=== PATIENT | male | born 1985 | race Caucasian/White ===

== ENCOUNTER 2016-12-25 20:17 | Emergency (ER) | payer MEDICAID ==
[2016-12-25 21:18] VITALS: BP 148/90
--- NOTE | 2016-12-25 22:08 | EDM.PDOC ---
ED HPI GENERAL MEDICAL PROBLEM - General Chief Complaint: Headache Stated Complaint: HEADACHES Time Seen by Provider: 12/25/16 21:51 Source of Information: Reports: Patient History Limitations: Reports: No Limitations, Altered Mental Status - History of Present Illness INITIAL COMMENTS - FREE TEXT/NARRATIVE: 31 years old male patient presented with chief complaint of three-day history of right-sided throbbing headache. Waxing and waning. Denies any visual changes. Denies any fever. No neck pain or stiffness. Denies any nausea or vomiting. Denies any body aches. Denies any chest pain or shortness breath. He stated for the last 4 or 5 hours is feeling numb in his left hand and he dropped a cup, time. He feels numbness is almost gone at this point. Denies any weakness. Headache Pain Score (Numeric/FACES): 4 - Related Data Allergies Allergy/AdvReac Type Severity Reaction Status Date / Time No Known Allergies Allergy Verified 12/25/16 21:27 Home Meds: Home Meds Allopurinol [Allopurinol] 1 tab PO ASDIRECTED 03/15/15 [History] Past Medical History Gastrointestinal History: Reports: GERD Musculoskeletal History: Reports: Fracture Other Musculoskeletal History: back pain hx. gout Social & Family History - Tobacco Use Smoking Status *Q: Heavy Tobacco Smoker Years of Tobacco use: 20 Packs/Tins Daily: 1 Used Tobacco, but Quit: Yes Month Tobacco Last Used: may, Second Hand Smoke Exposure: No - Alcohol Use Days Per Week of Alcohol Use: 0 Number of Drinks Per Day: 3 Total Drinks Per Week: 0 - Recreational Drug Use Recreational Drug Use: No - Living Situation & Occupation Occupation: Employed ED ROS GENERAL - Review of Systems Review Of Systems: ROS reveals no pertinent complaints other than HPI. - Physical Exam Exam: See Below Exam Limited By: No Limitations General Appearance: Alert, WD/WN, No Apparent Distress Head Exam: Atraumatic, Normocephalic Neck: Normal Inspection, Supple, Non-Tender, Full Range of Motion Respiratory/Chest: No Respiratory Distress, Lungs Clear, Normal Breath Sounds, No Accessory Muscle Use, Chest Non-Tender Cardiovascular: Normal Peripheral Pulses, Regular Rate, Rhythm, No Edema, No Gallop, No JVD, No Murmur, No Rub GI/Abdominal: Normal Bowel Sounds, Soft, Non-Tender, No Organomegaly, No Distention, No Abnormal Bruit, No Mass Neuro Exam (Abbreviated): Alert, Oriented, CN II-XII Intact, Normal Cognition, Normal Gait, Normal Reflexes, No Motor/Sensory Deficits, Other (Paresthesia of the left hand) Course - Vital Signs Last Recorded V/S: Last Vital Signs Temp 36.3 C 12/25/16 21:24 Pulse 60 12/25/16 21:24 Resp 16 12/25/16 21:24 BP 148/90 H 12/25/16 21:24 Pulse Ox 99 12/25/16 21:24 - Orders/Labs/Meds Orders: Active Orders 24 hr Category Date Time Status Head wo Cont [CT] Urgent Exams 12/25/16 22:00 Taken Sodium Chloride 0.9% [Normal Saline] 1,000 ml Med 12/25/16 22:15 Active IV .BOLUS Medication Orders Sodium Chloride (Normal Saline) 1,000 mls @ 999 mls/hr IV .BOLUS CORRY Last Admin: 12/25/16 22:16 Dose: 999 mls/hr Labs: Laboratory Tests 12/25/16 12/25/16 12/25/16 Range/Units 22:16 22:16 22:16 WBC 11.6 H (4.5-11.0) K/uL RBC 5.57 (4.30-5.90) M/uL Hgb 16.8 H (12.0-15.0) g/dL Hct 47.6 (40.0-54.0) % MCV 86 (80-98) fL MCH 30 (27-31) pg MCHC 35 (32-36) % Plt Count 272 (150-400) K/uL Neut % (Auto) 66 (36-66) % Lymph % (Auto) 25 (24-44) % Emmons % (Auto) 7 H (2-6) % Eos % (Auto) 2 (2-4) % Baso % (Auto) 1 (0-1) % ESR (0-20) mm/hr PT 10.6 (9.5-12.0) sec INR 0.99 (0.80-1.20) APTT 26.4 L (27.0-36.0) sec Sodium 139 L (140-148) mmol/L Potassium 3.6 (3.6-5.2) mmol/L Chloride 104 (100-108) mmol/L Carbon Dioxide 28 (21-32) mmol/L Anion Gap 10.6 (5.0-14.0) mmol/L BUN 12 (7-18) mg/dL Creatinine 1.0 (0.8-1.3) mg/dL Est Cr Clr Drug Dosing 99.15 mL/min Estimated GFR (MDRD) > 60 (>60) Glucose 73 L (74-106) mg/dL Calcium 8.4 L (8.5-10.1) mg/dL C-Reactive Protein 0.52 H (0.0-0.3) mg/dL 12/25/16 Range/Units 22:16 WBC (4.5-11.0) K/uL RBC (4.30-5.90) M/uL Hgb (12.0-15.0) g/dL Hct (40.0-54.0) % MCV (80-98) fL MCH (27-31) pg MCHC (32-36) % Plt Count (150-400) K/uL Neut % (Auto) (36-66) % Lymph % (Auto) (24-44) % Emmons % (Auto) (2-6) % Eos % (Auto) (2-4) % Baso % (Auto) (0-1) % ESR 3 (0-20) mm/hr PT (9.5-12.0) sec INR (0.80-1.20) APTT (27.0-36.0) sec Sodium (140-148) mmol/L Potassium (3.6-5.2) mmol/L Chloride (100-108) mmol/L Carbon Dioxide (21-32) mmol/L Anion Gap (5.0-14.0) mmol/L BUN (7-18) mg/dL Creatinine (0.8-1.3) mg/dL Est Cr Clr Drug Dosing mL/min Estimated GFR (MDRD) (>60) Glucose (74-106) mg/dL Calcium (8.5-10.1) mg/dL C-Reactive Protein (0.0-0.3) mg/dL Meds: Medications Generic Name Dose Route Start Last Admin Trade Name Freq PRN Reason Stop Dose Admin Sodium Chloride 1,000 mls @ 999 mls/hr 12/25/16 22:15 12/25/16 22:16 Normal Saline IV 999 mls/hr .BOLUS CORRY Administration - Re-Assessments/Exams Free Text/Narrative Re-Assessment/Exam: 12/25/16 22:07 Patient was seen and examined shortly after arrival. Started on IV fluids. CT head ordered. Lab and imaging. CT head shows no acute abnormalities. Lab shows mildly elevated white count and CRP. Patient refused any pain medication. He stated that his symptom almost completely resolved. Numbness completely resolved. At this point unclear etiology of his headache. Differential including but not limited to migraine headache, tension headache, complex migraine headache, TIA, stroke, subarachnoid hemorrhage viral illness, meningitis, encephalitis, etc. Symptoms almost resolved. Advised to come back if symptom worsen. Follow-up with his primary doctor tomorrow for reevaluation and possibly MRI of his brain. Patient agrees with the plan. Stable for discharge 12/25/16 23:40 12/25/16 23:44 Departure - Departure Time of Disposition: 23:44 Disposition: Home, Self-Care 01 Condition: Good Clinical Impression: Migraine - Discharge Information Referrals: PCP,None [Primary Care Provider] - Forms: ED Department Discharge Additional Instructions: Advised to come back if symptom worsen. Follow-up with his primary doctor tomorrow for reevaluation and possibly MRI of his brain. - My Orders Last 24 Hours: My Active Orders 12/25/16 22:00 Head wo Cont [CT] Urgent 12/25/16 22:15 Sodium Chloride 0.9% [Normal Saline] 1,000 ml IV .BOLUS - Assessment/Plan Last 24 Hours: My Active Orders 12/25/16 22:00 Head wo Cont [CT] Urgent 12/25/16 22:15 Sodium Chloride 0.9% [Normal Saline] 1,000 ml IV .BOLUS Plan: Advised to come back if symptom worsen. Follow-up with his primary doctor tomorrow for reevaluation and possibly MRI of his brain.
[2016-12-25] MEDS ORDERED: Sodium Chloride 0.9% 1,000 ML IV SCH (22:15)
== END 2016-12-26 00:06 | disposition home or self-care (01) ==
LOC: JP.ED 20:17
DX: G43.909 Migraine, unspecified, not intractable, without status migrainosus (principal); F17.210 Nicotine dependence, cigarettes, uncomplicated; K21.9 Gastro-esophageal reflux disease without esophagitis
CPT/HCPCS: 36415; 70450; 80048; 85025; 85610; 85651; 85730; 86140; 96360; 99284; J7040

== ENCOUNTER 2018-07-05 10:43 | Emergency (ER) | payer MEDICAID ==
[2018-07-05 11:00] VITALS: BP 169/117
[2018-07-05] MEDS ORDERED: Ketorolac 60 MG/2 ML SDV IM ONE (11:37)
--- NOTE | 2018-07-05 11:43 | EDM.PDOC ---
ED HPI GENERAL MEDICAL PROBLEM - General Chief Complaint: ENT Problem Stated Complaint: TOOTH ACHE Time Seen by Provider: 07/05/18 11:35 Source of Information: Reports: Patient, RN Notes Reviewed History Limitations: Reports: No Limitations - History of Present Illness INITIAL COMMENTS - FREE TEXT/NARRATIVE: 32-year-old gentleman presents emergency department day complaint of dental pain he states he recently had some dental work done on last week in preparation for her crown however the pain has persistently gotten worse he does have a dental appointment tomorrow he is needing pain medication to make it through until he can visit with his dentist he is not had any fevers - Related Data Allergies Allergy/AdvReac Type Severity Reaction Status Date / Time No Known Allergies Allergy Verified 07/05/18 11:05 Home Meds: Home Meds NK [No Known Home Meds] 12/25/17 [History] Past Medical History Gastrointestinal History: Reports: GERD Musculoskeletal History: Reports: Fracture Other Musculoskeletal History: back pain hx. gout - Past Surgical History Musculoskeletal Surgical History: Reports: Other (See Below) Other Musculoskeletal Surgeries/Procedures:: lumbar tap Social & Family History - Tobacco Use Smoking Status *Q: Current Every Day Smoker Years of Tobacco use: 10 Packs/Tins Daily: 1 - Caffeine Use Caffeine Use: Reports: Soda - Recreational Drug Use Recreational Drug Use: No - Living Situation & Occupation Occupation: Employed ED ROS ENT - Review of Systems Review Of Systems: See Below Constitutional: Denies: Fever HEENT: Reports: Dental Pain ED EXAM, ENT - Physical Exam Exam: See Below Text/Narrative:: Mouth mucosa is moist and pink there is no erythema or exudate noted in soft palate tongue is midline uvula is midline dentition #14 has recent dental work on it it is tender to the touch Exam Limited By: No Limitations General Appearance: Alert, WD/WN, No Apparent Distress Course - Vital Signs Last Recorded V/S: Last Vital Signs Temp 95.4 F 07/05/18 11:05 Pulse 100 07/05/18 11:05 Resp 22 H 07/05/18 11:05 BP 169/117 H 07/05/18 11:05 Pulse Ox 93 L 07/05/18 11:05 - Orders/Labs/Meds Meds: Medications Discontinued Medications Generic Name Dose Route Start Last Admin Trade Name Fresakshi PRN Reason Stop Dose Admin Ketorolac Tromethamine 60 mg 07/05/18 11:37 Toradol IM 07/05/18 11:38 ONETIME ONE Departure - Departure Time of Disposition: 11:42 Disposition: Home, Self-Care 01 Condition: Fair Clinical Impression: Pain, dental - Discharge Information Referrals: PCP,None [Primary Care Provider] - Additional Instructions: Use hydrocodone 1 tablet every 4-6 hours as needed for pain control please keep your follow-up appointment with dentistry tomorrow - Assessment/Plan Plan: Assessment Acuity = acute Site and laterality = dental pain tooth #14 Etiology = secondary to recent dental work Manifestations = none Location of injury = Home Lab values = none Plan Hydrocodone 5/325 one tablet by mouth 3 times a day when necessary total #4 provided , he has a follow-up appointment with dentistry tomorrow This note was dictated using [employer] voice recognition software please call with any questions on syntax or grammar.
== END 2018-07-05 11:57 | disposition home or self-care (01) ==
LOC: JP.ED 10:43
DX: K08.89 Other specified disorders of teeth and supporting structures (principal); F17.210 Nicotine dependence, cigarettes, uncomplicated
CPT/HCPCS: 96372; 99282; J1885

== ENCOUNTER 2018-07-06 18:53 | Emergency (ER) | payer MEDICAID ==
[2018-07-06 19:07] VITALS: BP 161/106
--- NOTE | 2018-07-06 19:20 | EDM.PDOC ---
ED HPI GENERAL MEDICAL PROBLEM - General Chief Complaint: ENT Problem Stated Complaint: TOOTH PULLED, STILL BLEEDING Time Seen by Provider: 07/06/18 19:05 Source of Information: Reports: Patient, Old Records, RN History Limitations: Reports: No Limitations - History of Present Illness INITIAL COMMENTS - FREE TEXT/NARRATIVE: 32 yo male had a tooth extracted this morning. Has been bleeding since. Has a large clot in the location of his dental extraction. Is not on any anticoagulants. Onset: Today Onset Date: 07/06/18 Onset Time: 09:00 Duration: Constant Location: Reports: Face (L maxillary molar) Quality: Reports: Dull Severity: Mild Improves with: Reports: None Worsens with: Reports: None Context: Reports: Other (see HPI) Associated Symptoms: Reports: No Other Symptoms Treatments PORTER SAMPLE CASE: Reports: Other (see below) (gauze) - Related Data Allergies Allergy/AdvReac Type Severity Reaction Status Date / Time No Known Allergies Allergy Verified 07/05/18 11:05 Home Meds: Home Meds NK [No Known Home Meds] 12/25/17 [History] Past Medical History - Past Health History Medical/Surgical History: Denies Medical/Surgical History Gastrointestinal History: Reports: GERD Musculoskeletal History: Reports: Fracture Other Musculoskeletal History: back pain hx. gout - Past Surgical History Musculoskeletal Surgical History: Reports: Other (See Below) Other Musculoskeletal Surgeries/Procedures:: lumbar tap Social & Family History - Tobacco Use Smoking Status *Q: Current Every Day Smoker Years of Tobacco use: 20 Packs/Tins Daily: 1 - Caffeine Use Caffeine Use: Reports: Soda - Recreational Drug Use Recreational Drug Use: No - Living Situation & Occupation Occupation: Employed ED ROS ENT - Review of Systems Review Of Systems: See Below Constitutional: Reports: No Symptoms HEENT: Reports: Other (oral bleeding) Respiratory: Reports: No Symptoms Cardiovascular: Reports: No Symptoms Endocrine: Reports: No Symptoms GI/Abdominal: Reports: No Symptoms Skin: Reports: No Symptoms Neurological: Reports: No Symptoms Psychiatric: Reports: No Symptoms ED EXAM, ENT - Physical Exam Exam: See Below Exam Limited By: No Limitations General Appearance: Alert, WD/WN, No Apparent Distress Eye Exam: Bilateral Eye: Normal Inspection Ears: Normal External Exam, Normal Canal, Hearing Grossly Normal Nose: Normal Inspection, No Blood Mouth/Throat: Normal Inspection, Normal Lips, Normal Oropharynx, Other (large clot in L posterior maxilla, slow bleeding noted.) Head: Atraumatic, Normocephalic Neck: Normal Inspection, Supple, Non-Tender Respiratory/Chest: No Respiratory Distress, No Accessory Muscle Use Cardiovascular: Regular Rate, Rhythm Neurological: Alert, Oriented, CN II-XII Intact, Normal Cognition, No Motor/ Sensory Deficits Psychiatric: Normal Affect, Normal Mood Skin: Warm, Dry, Intact, Normal Color Lymphatic: No Adenopathy Course - Vital Signs Text/Narrative:: Clot removed. Had patient bite on a wetted black tea bag. Bleeding controlled with this measure. Last Recorded V/S: Last Vital Signs Temp 35.7 C 07/06/18 19:08 Pulse 66 07/06/18 19:08 Resp 14 07/06/18 19:08 BP 161/106 H 07/06/18 19:08 Pulse Ox 99 07/06/18 19:08 Departure - Departure Time of Disposition: 19:41 Disposition: Home, Self-Care 01 Condition: Good Clinical Impression: Surgical wound hemorrhage after dental procedure - Discharge Information *PRESCRIPTION DRUG MONITORING PROGRAM REVIEWED*: No *COPY OF PRESCRIPTION DRUG MONITORING REPORT IN PATIENT FARZANA: No Referrals: PCP,None [Primary Care Provider] - Forms: ED Department Discharge Additional Instructions: Bite on a black tea bag as needed to control bleeding. Use acetaminophen for pain control as this will cause less bleeding. Recheck as needed.
== END 2018-07-06 19:50 | disposition home or self-care (01) ==
LOC: JP.ED 18:53
DX: K91.840 Postprocedural hemorrhage of a digestive system organ or structure following a digestive system procedure (principal); F17.210 Nicotine dependence, cigarettes, uncomplicated
CPT/HCPCS: 99282

== ENCOUNTER 2019-04-25 19:37 | Emergency (ER) | payer MEDICAID ==
[2019-04-25 19:52] VITALS: BP 136/82; PULSE 66
--- NOTE | 2019-04-25 21:29 | EDM.PDOC ---
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 He reports that he had a mild bifrontal headache with radiation around to the posterior scalp all day. 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 Severity is actually now decreased to 4/10. He had no associated vision changes or pain with eye movement. No weakness or clumsiness of extremities. No speech difficulty. No neck pain. No fevers. Right Headache Pain Score (Numeric/FACES): 3 - Related Data Allergies Allergy/AdvReac Type Severity Reaction Status Date / Time No Known Allergies Allergy Verified 04/25/19 19:53 Home Meds: Home Meds Aspirin 325 mg PO DAILY 04/25/19 [History] Varenicline Tartrate [Chantix] 1 dose PO DAILY 04/25/19 [History] atorvaSTATin [Lipitor] 20 mg PO DAILY 04/25/19 [History] Past Medical History - Past Health History Medical/Surgical History: Denies Medical/Surgical History Cardiovascular History: Reports: High Cholesterol Gastrointestinal History: Reports: GERD Musculoskeletal History: Reports: Fracture Other Musculoskeletal History: back pain hx. gout Neurological History: Reports: CVA Hematologic History: Reports: Anticoagulation Therapy - Past Surgical History Musculoskeletal Surgical History: Reports: Other (See Below) Other Musculoskeletal Surgeries/Procedures:: lumbar tap Social & Family History - Family History Family Medical History: Noncontributory - Tobacco Use Smoking Status *Q: Former Smoker Years of Tobacco use: 24 Used Tobacco, but Quit: Yes Month/Year Tobacco Last Used: March 2019 - Caffeine Use Caffeine Use: Reports: Coffee, Energy Drinks, Soda, Tea - Recreational Drug Use Recreational Drug Use: No - Living Situation & Occupation Occupation: Employed ED ROS GENERAL - Review of Systems Review Of Systems: See Below Constitutional: Reports: No Symptoms HEENT: Reports: No Symptoms Respiratory: Reports: No Symptoms Cardiovascular: Reports: No Symptoms Endocrine: Reports: No Symptoms GI/Abdominal: Reports: No Symptoms : Reports: No Symptoms Musculoskeletal: Reports: No Symptoms Skin: Reports: No Symptoms Neurological: Reports: Headache Psychiatric: Reports: No Symptoms Hematologic/Lymphatic: Reports: No Symptoms Immunologic: Reports: No Symptoms - Physical Exam Exam: See Below Exam Limited By: No Limitations General Appearance: Alert, No Apparent Distress Ears: Normal External Exam Nose: Normal Inspection Throat/Mouth: Normal Inspection Head Exam: Atraumatic, Normocephalic Neck: Normal Inspection Respiratory/Chest: No Respiratory Distress, Lungs Clear Cardiovascular: Regular Rate, Rhythm GI/Abdominal: Soft, Non-Tender Neuro Exam (Abbreviated): Alert, Oriented, CN II-XII Intact, Normal Gait, No Motor/Sensory Deficits (Speech is fluid. EOMI. Extremity strength 5/5 and symmentric. Stable gait. Normal finger nose testing.) Back Exam: Normal Inspection Extremities: Normal Inspection Psychiatric: Normal Affect, Normal Mood Skin Exam: Warm, Dry Course - Vital Signs Last Recorded V/S: Last Vital Signs Temp 36.2 C 04/25/19 19:55 Pulse 66 04/25/19 19:55 Resp 16 04/25/19 19:55 BP 136/82 04/25/19 19:55 Pulse Ox 97 04/25/19 19:55 - Re-Assessments/Exams Free Text/Narrative Re-Assessment/Exam: 33 yo who presents with concerns of headache. Carries a history of possible MS, as well as recently diagnosed abnormality on CTA of the head and neck (just able to see pended outpatient neuro IR consult note). What he is describing today seems most consistent with tension type headache. His symptoms are actually improving. He is completely neuro intact. No symptoms hand clumsiness which accompanied his first MS flair in 2017, or any other findings to suggest flair of MS at this time. I think he is safe to treat symptomatically. If his symptoms worsen, or if he develops focal neuro findings or symptoms suggestive of optic neuritis, he will return to ER. 04/25/19 21:36 Departure - Departure Time of Disposition: 21:25 Disposition: Home, Self-Care 01 Clinical Impression: Headache Qualifiers: Headache type: tension-type Headache chronicity pattern: unspecified pattern Intractability: not intractable Qualified Code(s): G44.209 - Tension-type headache, unspecified, not intractable - Discharge Information Instructions: General Headache Without Cause, [id number] Referrals: PCP,None [Primary Care Provider] - Forms: ED Department Discharge Additional Instructions: Your headache is not likely to be due to a stroke and possible MS You are okay to treat it with tylenol and ibuprofen If you have a significant change in symptoms, particularly if you noticed pain with eye movements, double vision, weakness or clumsiness please return to the ER. Sepsis Event Note - Evaluation Sepsis Screening Result: No Definite Risk - Focused Exam Vital Signs: Vital Signs Temp Pulse Resp BP Pulse Ox 04/25/19 19:55 36.2 C 66 16 136/82 97 04/25/19 19:50 36.2 C 66 16 136/82 97 Date Exam was Performed: 04/25/19 Time Exam was Performed: 21:31
== END 2019-04-25 21:34 | disposition home or self-care (01) ==
LOC: JP.ED 19:37
DX: G44.209 Tension-type headache, unspecified, not intractable (principal); E78.00 Pure hypercholesterolemia, unspecified; Z79.82 Long term (current) use of aspirin; Z79.899 Other long term (current) drug therapy; Z86.73 Personal history of transient ischemic attack (TIA), and cerebral infarction without residual deficits; Z87.891 Personal history of nicotine dependence
CPT/HCPCS: 99283

== ENCOUNTER 2019-09-25 15:42 | Emergency (ER) | payer MEDICAID ==
[2019-09-25 15:53] VITALS: BP 174/106; PULSE 78
[2019-09-25] MEDS ORDERED: Ketorolac 60 MG/2 ML SDV IM ONE (16:05)
[2019-09-25] MEDS ORDERED: Colchicine 0.6 MG Tab PO ONE (16:05)
--- NOTE | 2019-09-25 16:10 | EDM.PDOC ---
ED HPI GENERAL MEDICAL PROBLEM - General Chief Complaint: Lower Extremity Injury/Pain Stated Complaint: RIGHT FOOT SWOLLEN Time Seen by Provider: 09/25/19 16:00 Source of Information: Reports: Patient, Family, RN Notes Reviewed History Limitations: Reports: No Limitations - History of Present Illness INITIAL COMMENTS - FREE TEXT/NARRATIVE: 33-year-old gentleman presents emergency department today with complaint of pain in his great toe right foot he does have a history of gout he is only been using allopurinol he does not know the triggers of his gout and has not had a flareup for some time. Has been increasing over the last 4 days as well as swelling of the great toe Right Foot Pain Score (Numeric/FACES): 10 - Related Data Allergies Allergy/AdvReac Type Severity Reaction Status Date / Time No Known Allergies Allergy Verified 09/25/19 15:54 Home Meds: Home Meds Aspirin 325 mg PO DAILY 04/25/19 [History] atorvaSTATin [Lipitor] 20 mg PO DAILY 04/25/19 [History] allopurinoL [Zyloprim] 300 mg PO DAILY 09/25/19 [History] Past Medical History Cardiovascular History: Reports: High Cholesterol Gastrointestinal History: Reports: GERD Musculoskeletal History: Reports: Back Pain, Chronic, Fracture, Gout Neurological History: Reports: CVA Hematologic History: Reports: Anticoagulation Therapy - Past Surgical History Cardiovascular Surgical History: Reports: None Neurological Surgical History: Reports: None Musculoskeletal Surgical History: Reports: Other (See Below) Other Musculoskeletal Surgeries/Procedures:: lumbar tap Social & Family History - Family History Family Medical History: Noncontributory - Tobacco Use Smoking Status *Q: Current Every Day Smoker Years of Tobacco use: 20 Packs/Tins Daily: 1 - Caffeine Use Caffeine Use: Reports: Coffee, Energy Drinks, Soda - Recreational Drug Use Recreational Drug Use: No - Living Situation & Occupation Occupation: Employed Review of Systems - Review of Systems Review Of Systems: See Below Constitutional: Reports: No Symptoms Musculoskeletal: Reports: Other (Great toe pain right foot) Skin: Reports: Pallor, Erythema ED EXAM, GENERAL - Physical Exam Exam: See Below Free Text/Narrative:: Examination of the great toe it is tender over the first metatarsal, it is warm to the touch erythema is also appreciated pedal pulses +2 Exam Limited By: No Limitations General Appearance: Alert, WD/WN, No Apparent Distress Course - Vital Signs Last Recorded V/S: Last Vital Signs Temp 95 F L 09/25/19 15:51 Pulse 78 09/25/19 15:51 Resp 16 09/25/19 15:51 BP 174/106 H 09/25/19 15:51 Pulse Ox 97 09/25/19 15:51 - Orders/Labs/Meds Orders: Active Orders 24 hr Category Date Time Status Colchicine [Colcrys] Med 09/25/19 16:05 Once 1.8 mg PO ONETIME ONE Ketorolac [Toradol] Med 09/25/19 16:05 Once 60 mg IM ONETIME ONE Departure - Departure Time of Disposition: 16:09 Disposition: Home, Self-Care 01 Condition: Fair Clinical Impression: Gout Qualifiers: Gout site: toe Gout etiology: other secondary cause Chronicity: chronic Laterality: right Presence of tophus: without tophus Qualified Code(s): 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, right ankle and foot, without tophus (tophi) - Discharge Information Referrals: PCP,None [Primary Care Provider] - Additional Instructions: Take your colchicine in 1 hour after the initial dose, recommend start using ibuprofen this evening 800 mg 3 times a day as needed for pain control follow-up with your primary care in the next 3 to 5 days for evaluation if not better, call or return to the emergency department worsening of symptoms Sepsis Event Note (ED) - Evaluation Sepsis Screening Result: No Definite Risk - Focused Exam Vital Signs: Vital Signs Temp Pulse Resp BP Pulse Ox 09/25/19 15:51 95 F L 78 16 174/106 H 97 - My Orders Last 24 Hours: My Active Orders 09/25/19 16:05 Colchicine [Colcrys] 1.8 mg PO ONETIME ONE Ketorolac [Toradol] 60 mg IM ONETIME ONE - Assessment/Plan Last 24 Hours: My Active Orders 09/25/19 16:05 Colchicine [Colcrys] 1.8 mg PO ONETIME ONE Ketorolac [Toradol] 60 mg IM ONETIME ONE Plan: Assessment Acuity = acute Site and laterality = gout great toe right foot Etiology = unknown Manifestations = pain Location of injury = Home Lab values = none Plan Like to treat empirically colchicine 1.2 mg now followed by 0.6 mg in 1 hour as well as a Toradol injection he is going to use ibuprofen at home follow-up primary care 3 to 5 days if not better This note was dictated using [employer] voice recognition software please call with any questions on syntax or grammar.
== END 2019-09-25 16:40 | disposition home or self-care (01) ==
LOC: JP.ED 15:42
DX: M1A.4710 Other secondary chronic gout, right ankle and foot, without tophus (tophi) (principal); E78.00 Pure hypercholesterolemia, unspecified; F17.210 Nicotine dependence, cigarettes, uncomplicated; Z79.82 Long term (current) use of aspirin; Z79.899 Other long term (current) drug therapy; Z79.01 Long term (current) use of anticoagulants
CPT/HCPCS: 96372; 99283; A9270; J1885

== ENCOUNTER 2020-12-25 20:28 | Emergency (ER) | payer MEDICAID ==
[2020-12-25 21:04] VITALS: BP 140/94; PULSE 85
--- NOTE | 2020-12-25 21:39 | EDM.PDOC ---
ED HPI GENERAL MEDICAL PROBLEM - General Chief Complaint: ENT Problem Stated Complaint: SORE THROAT Time Seen by Provider: 12/25/20 21:20 Source of Information: Reports: Patient History Limitations: Reports: No Limitations - History of Present Illness INITIAL COMMENTS - FREE TEXT/NARRATIVE: 35-year-old male with a sore throat for the past 2 days, is very low but very uncomfortable. He now has a hoarse voice as well. No fevers or chills, no significant cough or runny nose. Onset: Gradual Duration: Day(s): (2 days of symptoms) Location: Reports: Chest (Discomfort is in the upper chest and lower throat just above the sternal notch) Worsens with: Reports: Other (Markedly worse with swallowing) Associated Symptoms: Reports: Other (Hoarse voice). Denies: Cough, Shortness of Breath Throat Pain Score (Numeric/FACES): 5 - Related Data Allergies Allergy/AdvReac Type Severity Reaction Status Date / Time No Known Allergies Allergy Verified 12/25/20 21:05 Home Meds: Home Meds Aspirin 325 mg PO DAILY 04/25/19 [History] atorvaSTATin [Lipitor] 20 mg PO DAILY 04/25/19 [History] allopurinoL [Zyloprim] 300 mg PO DAILY 09/25/19 [History] Past Medical History - Past Health History Medical/Surgical History: Denies Medical/Surgical History Cardiovascular History: Reports: Arrhythmia, Blood Clots/VTE/DVT, High Cholesterol, Other (See Below) Other Cardiovascular History: implanted loop recorder Gastrointestinal History: Reports: GERD Musculoskeletal History: Reports: Back Pain, Chronic, Fracture, Gout Other Musculoskeletal History: back pain hx. gout Neurological History: Reports: CVA Hematologic History: Reports: Anticoagulation Therapy - Infectious Disease History Infectious Disease History: Reports: Chicken Pox, Shingles - Past Surgical History Cardiovascular Surgical History: Reports: None, Other (See Below) Other Cardiovascular Surgeries/Procedures: "has a heart monitor in chest" Neurological Surgical History: Reports: None Musculoskeletal Surgical History: Reports: Other (See Below) Other Musculoskeletal Surgeries/Procedures:: lumbar tap Social & Family History - Family History Family Medical History: No Pertinent Family History - Tobacco Use Tobacco Use Status *Q: Current Every Day Tobacco User Years of Tobacco use: 26 Packs/Tins Daily: 1 - Caffeine Use Caffeine Use: Reports: Coffee, Energy Drinks, Soda - Recreational Drug Use Recreational Drug Use: No - Living Situation & Occupation Occupation: Employed ED ROS ENT - Review of Systems Review Of Systems: See Below Constitutional: Reports: Malaise. Denies: Fever, Chills HEENT: Reports: Throat Pain Respiratory: Denies: Shortness of Breath, Cough Cardiovascular: Denies: Chest Pain, Dyspnea on Exertion GI/Abdominal: Denies: Nausea, Vomiting Skin: Reports: No Symptoms Neurological: Reports: No Symptoms Psychiatric: Reports: No Symptoms ED EXAM, ENT - Physical Exam Exam: See Below Exam Limited By: No Limitations General Appearance: Alert, No Apparent Distress Eye Exam: Bilateral Eye: Normal Inspection Ears: Normal TMs Mouth/Throat: Normal Inspection, Other (Moderate pharyngeal erythema, no exudate or tonsillar swelling) Head: Atraumatic Neck: Other (He is actually somewhat tender to palpation just above the sternal notch over the lower throat, there is no mass or asymmetry). No: Lymphadenopathy (R), Lymphadenopathy (L) Respiratory/Chest: No Respiratory Distress, Lungs Clear Cardiovascular: Regular Rate, Rhythm Neurological: Alert, Oriented Psychiatric: Normal Affect, Normal Mood Skin: Warm, Dry Course - Vital Signs Last Recorded V/S: Last Vital Signs Temp 97.0 F 12/25/20 21:07 Pulse 85 12/25/20 21:07 Resp 14 12/25/20 21:07 BP 140/94 H 12/25/20 21:07 Pulse Ox 96 12/25/20 21:07 - Orders/Labs/Meds Orders: Active Orders 24 hr Category Date Time Status STREP SCRN A RAPID W CULT CONF [RM] Routine Lab 12/25/20 21:35 Results Labs: Laboratory Tests 12/25/20 Range/Units 21:35 SARS CoV-2 RNA Rapid RODNEY Negative Meds: Medications Discontinued Medications Generic Name Dose Route Start Last Admin Trade Name Freq PRN Reason Stop Dose Admin Lidocaine HCl 15 ml 12/25/20 21:38 12/25/20 22:16 Lidocaine 2% Viscous Solution 15 Ml Cup PO 12/25/20 21:39 15 ml ONETIME ONE Administration - Re-Assessments/Exams Free Text/Narrative Re-Assessment/Exam: 12/25/20 22:26 Rapid strep was obtained as well as a coronavirus. Both were negative. He was then given 15 mils of viscous lidocaine to see if we can decrease the pain. With the hoarseness of his voice, this is likely viral. 12/25/20 22:35 Lidocaine did help moderately, a prescription for 100 cc was given to use every 3 hours for additional pain control. I recommended ibuprofen on a regular basis, bland liquids, rest for 2 days and a work note was given. Recheck in 3 days if not improving. Departure - Departure Time of Disposition: 22:45 Disposition: Home, Self-Care 01 Clinical Impression: Pharyngitis with viral syndrome - Discharge Information Instructions: Sore Throat, [id number] Referrals: PCP,Unknown [Primary Care Provider] - Forms: ED Department Discharge Care Plan Goals: A regular dose of ibuprofen or naproxen will be helpful, bland liquids, and use topical numbing medicine as directed if helpful. Rest for 2 days, recheck in 3 days if not improving satisfactorily. Return sooner if worsening especially difficulty breathing. Sepsis Event Note (ED) - Evaluation Sepsis Screening Result: No Definite Risk - Focused Exam Vital Signs: Vital Signs Temp Pulse Resp BP Pulse Ox 12/25/20 21:07 97.0 F 85 14 140/94 H 96 12/25/20 21:02 97.0 F 85 14 140/94 H 96 - My Orders Last 24 Hours: My Active Orders 12/25/20 21:35 STREP SCRN A RAPID W CULT CONF [RM] Routine - Assessment/Plan Last 24 Hours: My Active Orders 12/25/20 21:35 STREP SCRN A RAPID W CULT CONF [RM] Routine
[2020-12-25] MEDS: Lidocaine 2% Viscous Solution 15 ML Cup PO ONE (22:16)
== END 2020-12-25 22:46 | disposition home or self-care (01) ==
LOC: JP.ED 20:28
DX: J02.9 Acute pharyngitis, unspecified (principal); B34.9 Viral infection, unspecified; E78.00 Pure hypercholesterolemia, unspecified; F17.210 Nicotine dependence, cigarettes, uncomplicated; Z20.822 Contact with and (suspected) exposure to COVID-19; Z79.82 Long term (current) use of aspirin; Z79.899 Other long term (current) drug therapy
CPT/HCPCS: 87081; 87635; 87880; 99283; A9270; U0002

== ENCOUNTER 2020-12-28 00:40 | Emergency (ER) | payer MEDICAID ==
[2020-12-28] MEDS ORDERED: Sodium Chloride 0.9% 10 ML Syringe FLUSH PRN (00:42)
[2020-12-28 00:47] VITALS: BP 144/90; PULSE 60
--- NOTE | 2020-12-28 00:51 | EDM.PDOC ---
ED HPI GENERAL MEDICAL PROBLEM - General Chief Complaint: Respiratory Problem Stated Complaint: BREATHING TROUBLE Time Seen by Provider: 12/28/20 00:41 Source of Information: Reports: Patient, EMS, Old Records History Limitations: Reports: No Limitations - History of Present Illness INITIAL COMMENTS - FREE TEXT/NARRATIVE: Claudio is a 35-year-old male presenting to the ED via [facility] for evaluation of acute onset of shortness of breath and choking sensation in his throat. The patient was seen and evaluated in the ED 2 days ago where he underwent a rapid group A strep screen and Covid test both of which were negative. He was treated with viscous lidocaine to help reduce the throat pain and ultimately discharged with a diagnosis of viral pharyngitis. He was instructed if not improving to return in 2 days which he did tonight. Patient states that several hours ago became more acutely short of breath making him more anxious. He is complaining of deep throat pain with difficulty swallowing and now breathing. There is no stridor or retraction and the patient's SPO2 is 100% on room air. He is tachypneic with a respiratory rate of 30 but not tachycardic. He appears quite anxious. Throat Pain Score (Numeric/FACES): 4 - Related Data Allergies Allergy/AdvReac Type Severity Reaction Status Date / Time No Known Allergies Allergy Verified 12/25/20 21:05 Home Meds: Home Meds Aspirin 325 mg PO DAILY 04/25/19 [History] atorvaSTATin [Lipitor] 20 mg PO DAILY 04/25/19 [History] allopurinoL [Zyloprim] 300 mg PO DAILY 09/25/19 [History] Past Medical History - Past Health History Medical/Surgical History: Denies Medical/Surgical History Cardiovascular History: Reports: Arrhythmia, Blood Clots/VTE/DVT, High Cholesterol, Other (See Below) Other Cardiovascular History: implanted loop recorder Gastrointestinal History: Reports: GERD Musculoskeletal History: Reports: Back Pain, Chronic, Fracture, Gout Other Musculoskeletal History: back pain hx. gout Neurological History: Reports: CVA Hematologic History: Reports: Anticoagulation Therapy - Infectious Disease History Infectious Disease History: Reports: Chicken Pox, Shingles - Past Surgical History Cardiovascular Surgical History: Reports: None, Other (See Below) Other Cardiovascular Surgeries/Procedures: "has a heart monitor in chest" Neurological Surgical History: Reports: None Musculoskeletal Surgical History: Reports: Other (See Below) Other Musculoskeletal Surgeries/Procedures:: lumbar tap Social & Family History - Family History Family Medical History: No Pertinent Family History - Caffeine Use Caffeine Use: Reports: Coffee, Energy Drinks, Soda - Living Situation & Occupation Occupation: Employed ED ROS GENERAL - Review of Systems Review Of Systems: See Below Constitutional: Reports: No Symptoms HEENT: Reports: Throat Pain, Throat Swelling (Hoarse voice but no stridor) Respiratory: Reports: Shortness of Breath (Due to a choking sensation in the neck) Cardiovascular: Reports: No Symptoms Endocrine: Reports: No Symptoms GI/Abdominal: Reports: No Symptoms : Reports: No Symptoms Musculoskeletal: Reports: No Symptoms Skin: Reports: No Symptoms. Denies: Cyanosis, Pallor, Diaphoresis Neurological: Reports: No Symptoms Psychiatric: Reports: Anxiety Hematologic/Lymphatic: Reports: No Symptoms Immunologic: Reports: No Symptoms ED EXAM, GENERAL - Physical Exam Exam: See Below Exam Limited By: No Limitations General Appearance: Alert, Anxious, Moderate Distress Eye Exam: Bilateral Eye: EOMI, PERRL Nose: Nasal Swelling. No: Clear Rhinorrhea Throat/Mouth: No Airway Compromise, Other (Hoarse voice, retropharyngeal erythema without significant swelling. Tenderness on the anterior neck to palpation especially over the thyroid in midline. No stridor.) Head: Atraumatic, Normocephalic Neck: Normal Inspection, Supple, Full Range of Motion, Tender Midline (Tender to palpation over the anterior midline just above the thyroid.). No: Lymphadenopathy (R), Lymphadenopathy (L) Respiratory/Chest: No Respiratory Distress, Chest Non-Tender, Wheezing (Scant inspiratory and expiratory wheezes, good airflow.), Other (Tachypnea). No: Stridor, Accessory Muscle Use, Retractions Cardiovascular: Normal Peripheral Pulses, Regular Rate, Rhythm, No Murmur GI/Abdominal: Normal Bowel Sounds, Soft, Non-Tender Extremities: Normal Inspection, Normal Range of Motion Neurological: Alert, Oriented, Normal Cognition, No Motor/Sensory Deficits Psychiatric: Anxious (Very anxious) Skin Exam: Warm, Dry, Normal Color. No: Cool, Cyanosis, Diaphoretic Lymphatic: No Adenopathy Course - Vital Signs Last Recorded V/S: Last Vital Signs Temp 36.3 C 12/28/20 00:46 Pulse 60 12/28/20 00:46 Resp 8 L 12/28/20 00:46 BP 144/90 H 12/28/20 00:46 Pulse Ox 99 12/28/20 00:46 - Orders/Labs/Meds Orders: Active Orders 24 hr Category Date Time Status Sodium Chloride 0.9% [Saline Flush] Med 12/28/20 00:42 Active 10 ml FLUSH ASDIRECTED PRN Saline Lock Insert [OM.PC] Routine Oth 12/28/20 00:42 Ordered Medication Orders Sodium Chloride (Sodium Chloride 0.9% 10 Ml Syringe) 10 ml FLUSH ASDIRECTED PRN PRN Reason: Keep Vein Open Last Admin: 12/28/20 00:59 Dose: 10 ml Documented by: GOVIND Labs: Laboratory Tests 12/28/20 12/28/20 12/28/20 Range/Units 00:45 00:45 00:45 WBC 12.6 H (4.5-11.0) K/uL RBC 5.53 (4.30-5.90) M/uL Hgb 16.7 H (12.0-15.0) g/dL Hct 47.1 (40.0-54.0) % MCV 85 (80-98) fL MCH 30 (27-31) pg MCHC 36 (32-36) % Plt Count 283 (150-400) K/uL Neut % (Auto) 60.3 (36-66) % Lymph % (Auto) 30.4 (24-44) % Clark % (Auto) 8.8 H (2-6) % Eos % (Auto) 0.0 L (2-4) % Baso % (Auto) 0.5 (0-1) % Sodium 140 (140-148) mmol/L Potassium 3.5 L (3.6-5.2) mmol/L Chloride 103 (100-108) mmol/L Carbon Dioxide 26 (21-32) mmol/L Anion Gap 14.5 H (5.0-14.0) mmol/L BUN 14 (7-18) mg/dL Creatinine 1.1 (0.8-1.3) mg/dL Est Cr Clr Drug Dosing 86.80 mL/min Estimated GFR (MDRD) > 60 (>60) Glucose 89 (74-106) mg/dL Calcium 8.9 (8.5-10.1) mg/dL Total Bilirubin 0.3 D (0.2-1.0) mg/dL AST 30 D (15-37) U/L ALT 80 H (12-78) U/L Alkaline Phosphatase 111 (46-116) U/L C-Reactive Protein 0.99 H (0.0-0.3) mg/dL Total Protein 6.9 (6.4-8.2) g/dL Albumin 4.0 (3.4-5.0) g/dL Globulin 2.9 (2.3-3.5) g/dL Albumin/Globulin Ratio 1.4 (1.2-2.2) Monoscreen Negative (NEGATIVE) Meds: Medications Generic Name Dose Route Start Last Admin Trade Name Freq PRN Reason Stop Dose Admin Sodium Chloride 10 ml 12/28/20 00:42 12/28/20 00:59 Sodium Chloride 0.9% 10 Ml Syringe FLUSH 10 ml ASDIRECTED PRN Administration Keep Vein Open Discontinued Medications Generic Name Dose Route Start Last Admin Trade Name Freq PRN Reason Stop Dose Admin Dexamethasone 6 mg 12/28/20 01:41 12/28/20 01:46 Dexamethasone 4 Mg/Ml Sdv IVPUSH 12/28/20 01:42 6 mg ONETIME ONE Administration Sodium Chloride 100 mls @ 3 mls/sec 12/28/20 01:03 12/28/20 01:16 Normal Saline IV 12/28/20 01:04 3 mls/sec ASDIRECTED STA Administration Ceftriaxone Sodium 2 gm/ 50 mls @ 100 mls/hr 12/28/20 02:35 Sodium Chloride IV 12/28/20 03:04 ONETIME ONE Iopamidol 100 ml 12/28/20 01:03 12/28/20 01:16 Iopamidol 612 Mg/Ml 100 Ml Bottle IV 12/28/20 01:04 100 ml . DIRECTED STA Administration - Radiology Interpretation Free Text/Narrative:: I reviewed the two view chest x-ray showing no acute cardiopulmonary abnormalities. I reviewed the images of the CT soft tissue of the neck with contrast as well as the report. The report is as follows: FINDINGS: Skull base: Unremarkable. Portions of the oral cavity and mandible are obscured by streak artifacts from the patient`s dental amalgams. Pharynx: No retropharyngeal fluid collections are identified. No CT evidence of tonsillar or peritonsillar abscess seen. Moderate, symmetric bilateral tonsillar hypertrophy noted. The epiglottis is normal in appearance. Larynx and airway: Unremarkable. Salivary: Unremarkable. Thyroid: Unremarkable. Vascular: Unremarkable for age. Lymph: Bilateral jugular adenopathy is present with lymph nodes measuring up to 1.3 cm. Bone: No acute fractures or aggressive bone lesions are identified. Disc: The disc spaces are unremarkable in appearance. The facet joints are unremarkable. Soft tissue: The prevertebral soft tissues are unremarkable in appearance. Lung: The visualized lung apices and mediastinum are unremarkable. IMPRESSIONS: 1. Bilateral jugular adenopathy is present with lymph nodes measuring up to 1.3 cm. 2. Moderate, symmetric bilateral tonsillar hypertrophy noted. Dictated by Tariq Bonilla MD @ 12/28/2020 1:52:31 AM - Re-Assessments/Exams Free Text/Narrative Re-Assessment/Exam: 12/28/20 01:44 I reviewed the patient's labs showing a leukocytosis of 12.6 with a normal differential, hemoglobin of 16.7, hematocrit of 47.1 and a platelet count of 283,000. The patient's comprehensive metabolic panel shows a sodium 140, potassium 3.5, chloride of 103, bicarbonate of 26, BUN of 14, creatinine of 1.1 and a glucose of 89. The GFR is calculated greater than 60. AST is 30 with an ALT of 80 and an alkaline phosphatase of 111. C-reactive protein is normal at 0.99. I did not repeat the strep test nor did I repeat the Covid test as they were done 2 days ago and were negative. The CT of the soft tissue neck reveals significant swelling in the area of the epiglottis with marked narrowing of the airway consistent with acute epiglottitis. Patient has not had any vaccinations since his young childhood. We will try to reduce swelling with dexamethasone 6 mg IV push. 12/28/20 02:08 final report on the CT of the soft tissue neck with contrast shows bilateral jugular adenopathy causing some swelling around the area of the epiglottis and subarachnoid space as well as moderate tonsillar hypertrophy. We will check a Monospot to see if this is infectious mononucleosis. The patient is improving after the dexamethasone 6 mg IV push. 12/28/20 02:49 is negative. We will put the patient on a 5-day course of prednisone 40 mg daily to reduce swelling. This is likely a viral pharyngitis with bilateral anterior cervical adenopathy causing impingement on the airway. Departure - Departure Time of Disposition: 02:49 Disposition: Home, Self-Care 01 Clinical Impression: Acute viral pharyngitis, Anterior cervical adenopathy - Discharge Information Referrals: PCP,None [Primary Care Provider] - Forms: ED Department Discharge Care Plan Goals: Your CAT scan shows bilateral anterior cervical adenopathy meaning swelling of the lymph nodes alongside the airway which was causing some compression at the area of the epiglottis. You do have enlarged tonsils and likely have a viral pharyngitis as was demonstrated by your blood work. You do not have mononucleosis. I am going to put you on a 5-day course of prednisone to continue to try to reduce swelling. Unfortunately antibiotics are not can to be very helpful as this is a viral infection. Turn to the ED should you have impairment of breathing again. Sepsis Event Note (ED) - Focused Exam Vital Signs: Vital Signs Temp Pulse Resp BP Pulse Ox 12/28/20 00:46 36.3 C 60 8 L 144/90 H 99 - Problem List & Annotations (1) Acute viral pharyngitis SNOMED Code(s): 395556701 Code(s): J02.9 - ACUTE PHARYNGITIS, UNSPECIFIED Status: Acute Priority: High Current Visit: Yes (2) Anterior cervical adenopathy SNOMED Code(s): 692773861 Code(s): R59.0 - LOCALIZED ENLARGED LYMPH NODES Status: Acute Priority: High Current Visit: Yes - Problem List Review Problem List Initiated/Reviewed/Updated: Yes - My Orders Last 24 Hours: My Active Orders 12/28/20 00:42 Sodium Chloride 0.9% [Saline Flush] 10 ml FLUSH ASDIRECTED PRN Saline Lock Insert [OM.PC] Routine - Assessment/Plan Last 24 Hours: My Active Orders 12/28/20 00:42 Sodium Chloride 0.9% [Saline Flush] 10 ml FLUSH ASDIRECTED PRN Saline Lock Insert [OM.PC] Routine
[2020-12-28] MEDS ORDERED: Iopamidol 612 MG/ML 100 ML Bottle IV STA (01:03)
[2020-12-28] MEDS ORDERED: Sodium Chloride 0.9% 100 ML IV STA (01:03)
[2020-12-28] MEDS ORDERED: Dexamethasone 4 MG/ML SDV IVPUSH ONE (01:41)
--- NOTE | 2020-12-28 01:53 | CRLCT ---
For Patients: As a result of the Century Cures Act, medical imaging exams and procedure reports are released immediately into your electronic medical record. You may view this report before your referring provider. If you have questions, please contact your health care provider. INDICATION: Dyspnea and choking sensation TECHNIQUE: CT neck soft tissue with i.v. contrast. Coronal and sagittal reformats were obtained. CONTRAST: 100 mL Isovue-300 COMPARISON: None FINDINGS: Skull base: Unremarkable. Portions of the oral cavity and mandible are obscured by streak artifacts from the patient`s dental amalgams. Pharynx: No retropharyngeal fluid collections are identified. No CT evidence of tonsillar or peritonsillar abscess seen. Moderate, symmetric bilateral tonsillar hypertrophy noted. The epiglottis is normal in appearance. Larynx and airway: Unremarkable. Salivary: Unremarkable. Thyroid: Unremarkable. Vascular: Unremarkable for age. Lymph: Bilateral jugular adenopathy is present with lymph nodes measuring up to 1.3 cm. Bone: No acute fractures or aggressive bone lesions are identified. Disc: The disc spaces are unremarkable in appearance. The facet joints are unremarkable. Soft tissue: The prevertebral soft tissues are unremarkable in appearance. Lung: The visualized lung apices and mediastinum are unremarkable. IMPRESSIONS: 1. Bilateral jugular adenopathy is present with lymph nodes measuring up to 1.3 cm. 2. Moderate, symmetric bilateral tonsillar hypertrophy noted. Dictated by Tairq Bonilla MD @ 12/28/2020 1:52:31 AM Please note that all CT scans at this facility use dose modulation, iterative reconstruction, and/or weight-based dosing when appropriate to reduce radiation dose to as low as reasonably achievable. Dictated by: Tariq Bonilla MD @ 12/28/2020 01:52:37 (Electronically Signed)
--- NOTE | 2020-12-28 02:27 | CRLCR ---
For Patients: As a result of the Century Cures Act, medical imaging exams and procedure reports are released immediately into your electronic medical record. You may view this report before your referring provider. If you have questions, please contact your health care provider. INDICATION: Dyspnea TECHNIQUE: Chest 2 views. COMPARISON: August 26, 2009 FINDINGS: Normal cardiomediastinal silhouette. Normal pulmonary vasculature. Linear atelectasis at the right lung base. No focal consolidation effusion, pneumothorax. No acute osseous abnormality. Electrical device in the left anterior chest wall. IMPRESSION: No sign of acute disease. Dictated by Irma Delatorre MD @ 12/28/2020 2:25:00 AM (Electronically Signed)
[2020-12-28] MEDS ORDERED: cefTRIAXone 2 GM in Sodium Chloride 0.9% 50 ML IV ONE (02:35)
== END 2020-12-28 03:18 | disposition home or self-care (01) ==
LOC: JP.ED 00:40
DX: J02.8 Acute pharyngitis due to other specified organisms (principal); E78.00 Pure hypercholesterolemia, unspecified; M10.9 Gout, unspecified; Z86.73 Personal history of transient ischemic attack (TIA), and cerebral infarction without residual deficits; Z86.718 Personal history of other venous thrombosis and embolism; Z79.82 Long term (current) use of aspirin; Z79.899 Other long term (current) drug therapy
CPT/HCPCS: 36415; 70491; 71046; 80053; 85025; 86140; 86308; 96374; 99285; J1100; Q9967

== ENCOUNTER 2021-02-22 18:53 | Emergency (ER) | payer MEDICAID ==
[2021-02-22 19:42] VITALS: BP 133/92; PULSE 57
--- NOTE | 2021-02-22 20:02 | EDM.PDOC ---
ED HPI GENERAL MEDICAL PROBLEM - General Chief Complaint: General Stated Complaint: LEFT SIDE HEAD PAIN Time Seen by Provider: 02/22/21 19:53 Source of Information: Reports: Patient, RN Notes Reviewed History Limitations: Reports: No Limitations - History of Present Illness INITIAL COMMENTS - FREE TEXT/NARRATIVE: 35-year-old gentleman presents emergency department day complaint of dental pain, he has one of his teeth left side of his jaw upper aspect is causing pain he is getting pain up into his eye socket. No nausea no vomiting no fevers. He did try to go to the dentist today but was unsuccessful Head Pain Score (Numeric/FACES): 10 - Related Data Allergies Allergy/AdvReac Type Severity Reaction Status Date / Time No Known Allergies Allergy Verified 02/22/21 19:43 Home Meds: Home Meds Aspirin 325 mg PO DAILY 04/25/19 [History] atorvaSTATin [Lipitor] 20 mg PO DAILY 04/25/19 [History] allopurinoL [Zyloprim] 300 mg PO DAILY 09/25/19 [History] Past Medical History Cardiovascular History: Reports: Arrhythmia, Blood Clots/VTE/DVT, High Cholesterol, Other (See Below) Other Cardiovascular History: implanted loop recorder Gastrointestinal History: Reports: GERD Musculoskeletal History: Reports: Back Pain, Chronic, Fracture, Gout Other Musculoskeletal History: back pain hx. 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 Hematologic History: Reports: Anticoagulation Therapy - Infectious Disease History Infectious Disease History: Reports: Chicken Pox, Shingles - Past Surgical History Cardiovascular Surgical History: Reports: Other (See Below) Other Cardiovascular Surgeries/Procedures: "has a heart monitor in chest" Musculoskeletal Surgical History: Reports: Other (See Below) Other Musculoskeletal Surgeries/Procedures:: lumbar tap Social & Family History - Family History Family Medical History: No Pertinent Family History - Tobacco Use Tobacco Use Status *Q: Heavy Tobacco User Years of Tobacco use: 30 Packs/Tins Daily: 1 - Caffeine Use Caffeine Use: Reports: Coffee, Energy Drinks - Recreational Drug Use Recreational Drug Use: No - Living Situation & Occupation Occupation: Employed ED ROS GENERAL - Review of Systems Review Of Systems: See Below Constitutional: Reports: No Symptoms HEENT: Reports: Dental Pain GI/Abdominal: Reports: No Symptoms ED EXAM, GENERAL - Physical Exam Exam: See Below Free Text/Narrative:: Examination of the mouth mucosa is moist and pink tooth #15 has multiple caries and cavities it is tender to the touch tongue is midline of his midline no erythema or exudate known soft palate Exam Limited By: No Limitations General Appearance: Alert, WD/WN, No Apparent Distress Course - Vital Signs Last Recorded V/S: Last Vital Signs Temp 97.1 F 02/22/21 19:40 Pulse 57 L 02/22/21 19:40 Resp 14 02/22/21 19:40 BP 133/92 H 02/22/21 19:40 Pulse Ox 99 02/22/21 19:40 Departure - Departure Time of Disposition: 20:01 Disposition: Home, Self-Care 01 Condition: Fair Clinical Impression: Dental abscess - Discharge Information Instructions: Dental Abscess Referrals: PCP,None [Primary Care Provider] - Additional Instructions: Take full course of antibiotics, use ibuprofen for baseline pain control use hydrocodone for breakthrough pain, please report to the dental clinic at 815 on February 25 you will be seen and evaluated by staff sometime during the day Sepsis Event Note (ED) - Evaluation Sepsis Screening Result: No Definite Risk - Focused Exam Vital Signs: Vital Signs Temp Pulse Resp BP Pulse Ox 02/22/21 19:40 97.1 F 57 L 14 133/92 H 99 - Assessment/Plan Plan: Assessment Acuity = acute Site and laterality = dental abscess Etiology = bacterial cause Manifestations = pain Location of injury = Home Lab values = none Plan Elect treat empirically amoxicillin 500 p.o. 3 times daily x10 days hydrocodone 5/325 1 tab p.o. 3 times daily as needed total #8 consultation for dentistry [facility] and is set up for 815 on February 25 This note was dictated using [employer] voice recognition software please call with any questions on syntax or grammar.
== END 2021-02-22 20:35 | disposition home or self-care (01) ==
LOC: JP.ED 18:53
DX: K04.7 Periapical abscess without sinus (principal); E78.00 Pure hypercholesterolemia, unspecified; K21.9 Gastro-esophageal reflux disease without esophagitis; Z72.0 Tobacco use; Z79.899 Other long term (current) drug therapy; Z79.82 Long term (current) use of aspirin
CPT/HCPCS: 99282

== ENCOUNTER 2021-10-12 03:56 | Emergency (ER) | payer MEDICAID ==
[2021-10-12] MEDS ORDERED: Ketorolac 30 MG/ML SDV IM ONE (04:23)
[2021-10-12] MEDS ORDERED: Methocarbamol 500 MG Tab PO ONE (04:23)
[2021-10-12 04:50] VITALS: BP 143/92; PULSE 58
== END 2021-10-12 05:09 | disposition home or self-care (01) ==
LOC: JP.ED 03:56
DX: S46.911A Strain of unspecified muscle, fascia and tendon at shoulder and upper arm level, right arm, initial encounter (principal); E78.00 Pure hypercholesterolemia, unspecified; K21.9 Gastro-esophageal reflux disease without esophagitis; M10.9 Gout, unspecified; F17.210 Nicotine dependence, cigarettes, uncomplicated; Z86.73 Personal history of transient ischemic attack (TIA), and cerebral infarction without residual deficits; Z79.82 Long term (current) use of aspirin; Z79.899 Other long term (current) drug therapy; X50.3XXA Overexertion from repetitive movements, initial encounter
CPT/HCPCS: 73030; 96372; 99283; A9270; J1885

== ENCOUNTER 2023-04-19 11:07 | Emergency (ER) | payer MEDICAID ==
[2023-04-19 11:30] VITALS: BP 136/83; PULSE 62
== END 2023-04-19 11:59 | disposition home or self-care (01) ==
LOC: JP.ED 11:07
DX: Z48.812 Encounter for surgical aftercare following surgery on the circulatory system (principal)
CPT/HCPCS: 99282

== ENCOUNTER 2023-09-07 12:52 | Emergency (ER) | payer MEDICAID ==
[2023-09-07 13:37] LABS: BASOPHILS ABSOLUTE AUTO 0.05 K/uL (0.00-0.10); BASOPHILS PERCENT AUTO 0.4 % (0.1-1.3); HEMATOCRIT 44.4 % (38.4-49.7); HEMOGLOBIN 15.9 g/dL (12.9-16.9); IMMATURE GRAN ABSOLUTE AUTO 0.04 K/uL (0.00-0.23); IMMATURE GRAN PERCENT AUTO 0.3 % (0.0-0.7); LYMPHOCYTES ABSOLUTE AUTO 1.35 K/uL (0.8-3.3); LYMPHOCYTES PERCENT AUTO 11.6 % (11.4-47.7); MEAN CORPUSCULAR HEMOGLOBIN 31.1 pg (31.6-35.5); MEAN CORPUSCULAR HGB CONC 35.8 g/dL (31.6-35.5); MEAN CORPUSCULAR VOLUME 86.9 fL (81.4-99.0); MONOCYTES ABSOLUTE AUTO 0.87 K/uL (0.20-0.90); MONOCYTES PERCENT AUTO 7.5 % (3.3-12.6); NEUTROPHILS ABSOLUTE AUTO 9.36 K/uL (1.0-7.6); NEUTROPHILS PERCENT AUTO 80.2 % (40.0-78.1); PLATELET COUNT,PLT 228 K/uL (130-375); RED BLOOD CELL COUNT 5.11 M/uL (4.14-5.76); WHITE BLOOD CELL COUNT,WBC 11.7 K/uL (3.2-11.0)
[2023-09-07 14:27] LABS: LYME AB IgG Negative (Negative); LYME AB IgM Negative (Negative)
[2023-09-07 14:33] LABS: ANION GAP 12.8 mmol/L (5.0-14.0); CALCIUM 8.8 mg/dL (8.5-10.1); CREATININE 1.1 mg/dL (0.8-1.3); EST CRCL DRUG DOSING (CG) 85.13 mL/min; POTASSIUM,K 3.8 mmol/L (3.6-5.2); TROPONIN I HIGH SENSITIVITY 9.1 pg/mL (<=60.3)
[2023-09-07 15:17] VITALS: BP 146/85; PULSE 87
[2023-09-10 23:13] LABS: ANAPLASMA PHAGOCYTOPHILUM PCR Not Detected; BABESIA MICROTI BY PCR Not Detected; BABESIA SPECIES BY PCR Not Detected; EHRLICHIA CHAFFEENSIS BY PCR Not Detected; EHRLICHIA EWINGII/CANIS BY PCR Not Detected; EHRLICHIA MURIS-LIKE BY PCR Not Detected
== END 2023-09-07 15:15 | disposition home or self-care (01) ==
LOC: JP.ED 12:52
DX: R07.9 Chest pain, unspecified (principal); T14.8XXA Other injury of unspecified body region, initial encounter; E78.00 Pure hypercholesterolemia, unspecified; F17.210 Nicotine dependence, cigarettes, uncomplicated; Z86.16 Personal history of COVID-19; Z79.82 Long term (current) use of aspirin; Z79.899 Other long term (current) drug therapy; Z79.1 Long term (current) use of non-steroidal anti-inflammatories (NSAID); W57.XXXA Bitten or stung by nonvenomous insect and other nonvenomous arthropods, initial encounter
CPT/HCPCS: 36415; 71046; 71046-26; 80048; 84484; 85025; 85379; 86618; 87468; 87469; 87484; 87798; 93005; 93010; 99284; 99285; U0002

== ENCOUNTER 2023-11-14 22:11 | Emergency (ER) | payer MEDICAID ==
[2023-11-14 22:21] VITALS: BP 167/102; PULSE 61
== END 2023-11-14 22:38 | disposition home or self-care (01) ==
LOC: JP.ED 22:11
DX: L08.9 Local infection of the skin and subcutaneous tissue, unspecified (principal); I10 Essential (primary) hypertension; E78.00 Pure hypercholesterolemia, unspecified; F17.210 Nicotine dependence, cigarettes, uncomplicated; Z86.16 Personal history of COVID-19; Z79.899 Other long term (current) drug therapy; Z79.1 Long term (current) use of non-steroidal anti-inflammatories (NSAID)
CPT/HCPCS: 99283

== ENCOUNTER 2025-03-14 08:22 | Emergency (ER) | payer SELFPAY ==
[2025-03-14] MEDS ORDERED: Sodium Chloride 0.9% 10 ML Syringe FLUSH PRN (08:46)
[2025-03-14 08:55] LABS: BASOPHILS ABSOLUTE AUTO 0.08 K/uL (0.00-0.10); BASOPHILS PERCENT AUTO 0.7 % (0.1-1.3); EOSINOPHILS PERCENT AUTO 0.0 % (0.0-5.4); IMMATURE GRAN ABSOLUTE AUTO 0.05 K/uL (0.00-0.23); IMMATURE GRAN PERCENT AUTO 0.5 % (0.0-0.7); LYMPHOCYTES ABSOLUTE AUTO 2.42 K/uL (0.8-3.3); LYMPHOCYTES PERCENT AUTO 21.9 % (11.4-47.7); MONOCYTES ABSOLUTE AUTO 0.56 K/uL (0.20-0.90); MONOCYTES PERCENT AUTO 5.1 % (3.3-12.6); NEUTROPHILS ABSOLUTE AUTO 7.92 K/uL (1.0-7.6); NEUTROPHILS PERCENT AUTO 71.8 % (40.0-78.1); PLATELET COUNT,PLT 269 K/uL (130-375); RED BLOOD CELL COUNT 5.39 M/uL (4.14-5.76); WHITE BLOOD CELL COUNT,WBC 11.0 K/uL (3.2-11.0)
[2025-03-14] MEDS ORDERED: Iopamidol 755 Mg/ML 100 ML Bottle IV SCH (09:00)
[2025-03-14 09:10] LABS: EOSINOPHILS ABSOLUTE AUTO 0.00 K/uL (0.00-0.40)
[2025-03-14 09:15] LABS: INR 1.0; PTT,PARTIAL THROMBOPLSTIN TIME 27.6 sec (21.8-27.3)
[2025-03-14 09:20] LABS: A/G RATIO 1.1 (1.2-2.2); ALANINE AMINOTRANSFERASE,ALT 45 U/L (12-78); ASPARTATE AMNIOTRANSFERASE,AST 24 U/L (15-37); BILIRUBIN TOTAL 0.4 mg/dL (0.2-1.0); BLOOD UREA NITROGEN,BUN 6 mg/dL (7-18); CARBON DIOXIDE,CO2 30 mmol/L (21-32); CHLORIDE,CL 107 mmol/L (100-108); CREATININE 1.1 mg/dL (0.8-1.3); ESTIMATED GFR 87 mL/min (>60); GLUCOSE RANDOM 80 mg/dL (74-106); POTASSIUM,K 3.9 mmol/L (3.6-5.2); PROTEIN TOTAL,TP 7.6 g/dL (6.4-8.2); SODIUM,NA 145 mmol/L (140-148); TROPONIN I HIGH SENSITIVITY 11.2 pg/mL (<=60.3)
[2025-03-14 11:56] VITALS: BP 165/108; PULSE 63
== END 2025-03-14 11:56 | disposition home or self-care (01) ==
LOC: JP.ED 08:22
DX: R51.9 Headache, unspecified (principal); K21.9 Gastro-esophageal reflux disease without esophagitis; I10 Essential (primary) hypertension; E78.00 Pure hypercholesterolemia, unspecified; F17.210 Nicotine dependence, cigarettes, uncomplicated; Z86.73 Personal history of transient ischemic attack (TIA), and cerebral infarction without residual deficits; Z79.82 Long term (current) use of aspirin; Z79.899 Other long term (current) drug therapy; Z86.16 Personal history of COVID-19
CPT/HCPCS: 36415; 70450; 70496; 70498; 80053; 82947; 84484; 85025; 85610; 85651; 85730; 86140; 93005; 93010; 99284; A9270